=== PATIENT | male | born 1970 | race Caucasian/White ===

== ENCOUNTER 2020-12-09 07:53 | Outpatient (CLI) | payer MEDICARE, SELFPAY ==
--- NOTE | 2020-12-09 08:15 | CT_ITS ---
WS: [id number] CT ABDOMEN AND PELVIS WITH CONTRAST HISTORY: DIVERTICULITIS, pain and bloating lower abdomen for one month. TECHNIQUE: Imaging performed of the abdomen and pelvis with IV contrast. Single phase imaging of the abdomen. Coronal and sagittal reformats are submitted. All CT scans at [facility] use at least one of these dose optimization techniques: automated exposure control; mA and/or kV adjustment per patient size (includes targeted exams where dose is matched to clinical indication); or iterativ e reconstruction. IV CONTRAST: Omnipaque 300; 95 mL IV. Oral contrast: Yes. DLP: 1199.33 mGycm COMPARISON: 04/13/2017 Lower thorax: Lung bases are clear. Heart is normal size. No hiatal hernia. Liver/biliary system: Normal size with no intrahepatic dilatation. Gallbladder: Normal. No gallstones or wall thickening. No pericholecystic fluid. Pancreas: Normal. Spleen: Normal. Adrenal glands: Normal. Right kidney: Normal. Left kidney: Normal. Aorta: Normal. Lymphadenopathy: None. Free fluid: None. GI tract: Normal appendix. No GI tract obstruction. There are numerous diverticula in the descending and sigmoid colon with mild mucosal thickening. No acute inflammation. No abscess or free air. Abdominal wall: Fat containing umbilical hernia. Pelvis: No free fluid or adenopathy. Urinary bladder is not distended. Bones: Posterior lumbar fusion at L5-S1. There is significant central or foraminal stenosis at the L4 -5 and L5-S1 levels due to combination of osteophytes and disc disease. Posterior laminectomy defect at L5-S1. CT/CT abdomen pelvis w con* [id number] IMPRESSION: 1. Descending and sigmoid diverticulosis without acute diverticulitis. 2. Normal appendix. 3. No acute abdominal or pelvic abnormalities. 4. Posterior lumbar fusion at L5-S1 with central and foraminal stenosis at L4- 5 and L5-S1.
[2020-12-09] MEDS: iohexol 300 mg/mL 50 mL Btl PO (08:43)
[2020-12-09] MEDS: iohexol 300 mg/mL 100 mL Btl IV (10:04)
== END 2020-12-09 07:54 | disposition home or self-care (01) ==
LOC: RADWPI 07:59
PROVIDERS: Visit Provider Nurse Practitioner Family
DX: K57.92 Diverticulitis of intestine, part unspecified, without perforation or abscess without bleeding (principal); R10.9 Unspecified abdominal pain; M43.27 Fusion of spine, lumbosacral region; M48.061 Spinal stenosis, lumbar region without neurogenic claudication; M48.07 Spinal stenosis, lumbosacral region; K57.30 Diverticulosis of large intestine without perforation or abscess without bleeding
CPT/HCPCS: 74177; Q9967